=== PATIENT | female | born 1965 | race American Indian/Alaskan Native ===

== ENCOUNTER 2016-11-06 17:26 | Emergency (ER) | payer SELFPAY ==
[2016-11-06 17:45] VITALS: BP 125/85
[2016-11-06] MEDS ORDERED: TYLENOL PO ONE (17:47)
[2016-11-06 23:05] LABS: Hematocrit 41.3 % (30.3-42.9); Hemoglobin 13.9 gm/dl (10.1-14.3); Mean Corpuscular HGB Conc 34 % (30-34); Mean Corpuscular Hemoglobin 31 pg (28-32); Mean Corpuscular Volume 91 fl (79-97); Platelet Count 143 K/mm3 (140-440); Red Blood Count 4.56 M/mm3 (3.65-5.03); Red Cell Distribution Width 13.5 % (13.2-15.2); White Blood Count 3.5 K/mm3 (4.5-11.0)
[2016-11-06 23:28] LABS: Anion Gap TNR mmol/L; Blood Urea Nitrogen TNR mg/dL (7-17); Carbon Dioxide TNR mmol/L (22-30); Chloride TNR mmol/L (98-107); Potassium TNR mmol/L (3.6-5.0); Sodium TNR mmol/L (137-145)
[2016-11-06 23:29] LABS: BUN/Creatinine Ratio TNR; Calcium TNR mg/dL (8.4-10.2); Glucose TNR mg/dL (65-100)
--- NOTE | 2016-11-06 23:39 | Emergency Department Report ---
<REBECCA MANDUJANO - Last Filed: 11/06/16 23:59> - General Chief Complaint: Fever Stated Complaint: FLU SYMPTOMS/BODY ACHES Time Seen by Provider: 11/06/16 22:27 Source: patient Mode of arrival: Ambulatory Limitations: No Limitations - History of Present Illness Initial Comments: Patient presents with cough and congestion, she states green mucus production and fever since yesterday. She also complains of aching all over in pain with coughing and her left lower back. She also admits to her urine being odorous. Admits to headache, sore throat, shortness of breath, body aches. MD Complaint: fever, cough, sore throat, nasal congestion -: Gradual Severity: moderate Severity scale (0 -10): 9 Quality: dull, aching Consistency: constant Improves With: nothing Associated Symptoms: fever, headache Treatments Prior to Arrival: "cold medicine" - Related Data Previous Rx's Medication Instructions Recorded Last Taken Type Acetaminophen [Acetaminophen TAB] 500 mg PO Q6HR #30 tablet 11/07/16 Unknown Rx Cephalexin [Keflex] 500 mg PO BID #14 capsule 11/07/16 Unknown Rx Oseltamivir [Tamiflu] 75 mg PO BID #10 cap 11/07/16 Unknown Rx Allergies Allergy/AdvReac Type Severity Reaction Status Date / Time No Known Allergies Allergy Verified 11/06/16 17:40 ED Review of Systems ROS: Stated complaint: FLU SYMPTOMS/BODY ACHES Other details as noted in HPI Constitutional: denies: chills, fever ENT: throat pain, congestion Respiratory: cough, shortness of breath Cardiovascular: denies: chest pain, palpitations Gastrointestinal: denies: abdominal pain, nausea, diarrhea Genitourinary: as per HPI Musculoskeletal: as per HPI Skin: denies: rash, lesions Neurological: headache Psychiatric: denies: anxiety, depression ED Past Medical Hx - Past Medical History Previous Medical History?: No - Surgical History Additional Surgical History: 2 c-sections - Social History Smoking Status: Never Smoker Substance Use Type: None - Medications Home Medications: Home Medications Medication Instructions Recorded Confirmed Last Taken Type Acetaminophen [Acetaminophen TAB] 500 mg PO Q6HR #30 tablet 11/07/16 Unknown Rx Cephalexin [Keflex] 500 mg PO BID #14 capsule 11/07/16 Unknown Rx Oseltamivir [Tamiflu] 75 mg PO BID #10 cap 11/07/16 Unknown Rx ED Physical Exam - General Limitations: No Limitations General appearance: alert, in no apparent distress, other (ill appearing but nontoxic) - Head Head exam: Present: atraumatic, normocephalic - Eye Eye exam: Present: normal appearance - ENT ENT exam: Present: mucous membranes moist, TM's normal bilaterally - Expanded ENT Exam Expanded Mouth exam: Present: normal external inspection Teeth exam: Present: normal inspection Throat exam: Positive: normal inspection - Neck Neck exam: Present: normal inspection - Respiratory Respiratory exam: Present: normal lung sounds bilaterally, decreased breath sounds. Absent: respiratory distress - Cardiovascular Cardiovascular Exam: Present: regular rate, normal rhythm. Absent: systolic murmur, diastolic murmur, rubs, gallop - GI/Abdominal GI/Abdominal exam: Present: soft, normal bowel sounds - Back Exam Back exam: Present: normal inspection - Neurological Exam Neurological exam: Present: alert, oriented X3 - Psychiatric Psychiatric exam: Present: normal affect, normal mood - Skin Skin exam: Present: warm, dry, intact, normal color. Absent: rash ED Course Vital Signs 11/06/16 11/06/16 17:38 17:49 Temperature 101.0 F H Pulse Rate 107 H Respiratory 19 19 Rate Blood Pressure 125/85 O2 Sat by Pulse 96 Oximetry ED Medical Decision Making - Lab Data Result diagrams: 11/06/16 22:52 11/06/16 22:52 - Medical Decision Making Patient presents with headache, sore throat, shortness of breath. Flu swab ordered. Critical Care Time: No Critical care attestation.: If time is entered above; I have spent that time in minutes in the direct care of this critically ill patient, excluding procedure time. ED Disposition Clinical Impression: Influenza A Urinary tract infection Qualifiers: Urinary tract infection type: site unspecified Hematuria presence: without hematuria Qualified Code(s): N39.0 - Urinary tract infection, site not specified Disposition: DISCHARGED TO HOME OR SELFCARE Is pt being admited?: No Does the pt Need Aspirin: No Condition: Stable Instructions: Influenza (ED), Urinary Tract Infection in Women (ED) Additional Instructions: Take medication as directed. Drink plenty of fluids to stay hydrated. Follow up with the selective referrals given at discharge. Return back to the ED for worsening symptoms or concerns Prescriptions: Acetaminophen [Acetaminophen TAB] 500 mg PO Q6HR #30 tablet Cephalexin [Keflex] 500 mg PO BID #14 capsule Oseltamivir [Tamiflu] 75 mg PO BID #10 cap Referrals: PRIMARY CARE,MD [Primary Care Provider] - 3-5 Days [facility] [Outside] - 3-5 Days Forms: Work/School Release Form(ED) <BURAK DURANDJose Alberto Odell - Last Filed: 11/07/16 01:07> ED Medical Decision Making - Lab Data Result diagrams: 11/06/16 22:52 11/06/16 23:44 Lab Results 11/06/16 11/06/16 11/06/16 Range/Units 00:00 22:52 22:52 WBC 3.5 L (4.5-11.0) K/mm3 RBC 4.56 (3.65-5.03) M/mm3 Hgb 13.9 (10.1-14.3) gm/dl Hct 41.3 (30.3-42.9) % MCV 91 (79-97) fl MCH 31 (28-32) pg MCHC 34 (30-34) % RDW 13.5 (13.2-15.2) % Plt Count 143 (140-440) K/mm3 Lyon % (Auto) Electromechanical Technician Sodium TNR Potassium TNR Chloride TNR Carbon Dioxide TNR Anion Gap TNR BUN TNR Creatinine TNR Estimated GFR TNR BUN/Creatinine Ratio TNR Glucose TNR Calcium TNR Urine Color Yellow (Yellow) Urine Turbidity Slightly-cloudy (Clear) Urine pH 5.0 (5.0-7.0) Ur Specific [place] 1.016 (1.003-1.030) Urine Protein <15 mg/dl (Negative) mg/dL Urine Glucose (UA) Neg (Negative) mg/dL Urine Ketones Tr (Negative) mg/dL Urine Blood Mod (Negative) Urine Nitrite Neg (Negative) Urine Bilirubin Neg (Negative) Urine Urobilinogen < 2.0 (<2.0) mg/dL Ur Leukocyte Esterase Sm (Negative) Urine WBC (Auto) 9.0 H (0.0-6.0) /HPF Urine RBC (Auto) 5.0 (0.0-6.0) /HPF U Epithel Cells (Auto) < 1.0 (0-13.0) /HPF Urine Bacteria (Auto) 2+ (Negative) /HPF Hyaline Casts 9 /LPF Urine Mucus 3+ /HPF 11/06/16 Range/Units 23:44 WBC (4.5-11.0) K/mm3 RBC (3.65-5.03) M/mm3 Hgb (10.1-14.3) gm/dl Hct (30.3-42.9) % MCV (79-97) fl MCH (28-32) pg MCHC (30-34) % RDW (13.2-15.2) % Plt Count (140-440) K/mm3 Lyon % (Auto) Sodium 134 L Potassium 3.7 Chloride 94.5 L Carbon Dioxide 23 Anion Gap 20 BUN 11 Creatinine 0.6 L Estimated GFR > 60 BUN/Creatinine Ratio 18.33 Glucose 89 Calcium 8.6 Urine Color (Yellow) Urine Turbidity (Clear) Urine pH (5.0-7.0) Ur Specific Al[place]o (1.003-1.030) Urine Protein (Negative) mg/dL Urine Glucose (UA) (Negative) mg/dL Urine Ketones (Negative) mg/dL Urine Blood (Negative) Urine Nitrite (Negative) Urine Bilirubin (Negative) Urine Urobilinogen (<2.0) mg/dL Ur Leukocyte Esterase (Negative) Urine WBC (Auto) (0.0-6.0) /HPF Urine RBC (Auto) (0.0-6.0) /HPF U Epithel Cells (Auto) (0-13.0) /HPF Urine Bacteria (Auto) (Negative) /HPF Hyaline Casts /LPF Urine Mucus /HPF Vital Signs 11/06/16 11/06/16 17:38 17:49 Temperature 101.0 F H Pulse Rate 107 H Respiratory 19 19 Rate Blood Pressure 125/85 O2 Sat by Pulse 96 Oximetry Microbiology 11/07/16 00:02 Influenza Types A,B Antigen (TIMOTHY) - Final Nasopharyngeal Swab Positive for A Negative for B - Medical Decision Making During the course of ED, analgesics and laboratory studies were ordered. Patient tested positive for influenza A and had a slightly elevated WBCs' in her urine. Patient was sent home with prescriptions for Tylenol, Tamiflu and Keflex, instructed to drink plenty of fluids to stay hydrated, she verbalize understanding - Differential Diagnosis Influenza, Upper Resp Infection, UTI, ED Disposition Is pt being admited?: No Does the pt Need Aspirin: No Time of Disposition: 01:04
--- NOTE | 2016-11-06 23:41 | XRay Report ---
FINAL REPORT PROCEDURE: XR CHEST ROUTINE 2V TECHNIQUE: PA and lateral chest radiographs were obtained. CPT 09372 HISTORY: shortness of breath COMPARISON: No prior studies are available for comparison. FINDINGS: Heart: Normal. Mediastinum/Vessels: Normal. Lungs/Pleural space: Lungs are well-expanded. There are patchy densities at the right lung base on the frontal view which could be right upper or middle lobe infiltrates. Correlation with clinical signs and symptoms suggested. There are no effusions or pneumothoraces.. Bony thorax: No acute osseous abnormality. Other: IMPRESSION: The heart size is normal.. Lungs are well-expanded. There are patchy densities at the right lung base on the frontal view which could be right upper or middle lobe infiltrates. Correlation with clinical signs and symptoms suggested. There are no effusions or pneumothoraces..
[2016-11-07 00:15] LABS: BUN/Creatinine Ratio 18.33; Blood Urea Nitrogen 11 mg/dL (7-17); Calcium 8.6 mg/dL (8.4-10.2); Carbon Dioxide 23 mmol/L (22-30); Chloride 94.5 mmol/L (98-107); Glucose 89 mg/dL (65-100); Potassium 3.7 mmol/L (3.6-5.0); Sodium 134 mmol/L (137-145)
[2016-11-07 00:16] LABS: Anion Gap 20 mmol/L
[2016-11-07 00:52] LABS: Anisocytosis 1+; Basophils % (Manual) 0 % (0.0-1.8); Blastocytes % (Manual) 0 %; Eosinophils % (Manual) 0 % (0.0-4.3)
[2016-11-07 00:53] LABS: Diff Status Complete; Hypochromasia 1+
== END 2016-11-07 01:37 | disposition home or self-care (01) ==
LOC: ED 17:26
DX: J09.X2 Influenza due to identified novel influenza A virus with other respiratory manifestations (principal); N39.0 Urinary tract infection, site not specified
CPT/HCPCS: 36415; 71020; 80048; 81001; 85007; 85025; 87400

== ENCOUNTER 2019-10-09 18:35 | Emergency (ER) | payer SELFPAY ==
--- NOTE | 2019-10-09 19:17 | Emergency Department Report ---
Blank Doc - Documentation Documentation: 54-year-old female that presents with midsternum chest pain. Denies any SOB. Stated symptoms started after eating Portuguese food. This initial assessment/diagnostic orders/clinical plan/treatment(s) is/are subject to change based on patient's health status, clinical progression and re- assessment by fellow clinical providers in the ED. Further treatment and workup at subsequent clinical providers discretion. Patient/guardians urged not to elope from the ED as their condition may be serious if not clinically assessed and managed. Initial orders include: 1- Patient sent to [facility] for further evaluation and treatment. 2- EKG
[2019-10-09] MEDS ORDERED: ALUM-MAG HYDROXIDE-SIMETHICONE 200-200-20MG/5ML ORAL LIQD 30 ML PO ONE (19:57)
[2019-10-09] MEDS ORDERED: ACETAMINOPHEN 500 MG TAB PO ONE (19:57)
[2019-10-09 20:26] LABS: Basophils % (Auto) 0.5 % (0.0-1.8); Eosinophils # (Auto) 0.2 K/mm3 (0.0-0.4); Eosinophils % (Auto) 2.9 % (0.0-4.3); Hematocrit 41.3 % (30.3-42.9); Hemoglobin 14.2 gm/dl (10.1-14.3); Lymphocytes # (Auto) 1.7 K/mm3 (1.2-5.4); Mean Corpuscular HGB Conc 34 % (30-34); Mean Corpuscular Volume 90 fl (79-97); Monocytes # (Auto) 0.6 K/mm3 (0.0-0.8); Monocytes % (Auto) 9.5 % (0.0-7.3); Platelet Count 200 K/mm3 (140-440); Red Blood Count 4.57 M/mm3 (3.65-5.03); Red Cell Distribution Width 13.5 % (13.2-15.2)
--- NOTE | 2019-10-09 20:41 | XRay Report ---
CHEST 1 VIEW INDICATION / CLINICAL INFORMATION: Chest Pain. COMPARISON: 11/06/2016 FINDINGS: SUPPORT DEVICES: None. HEART / MEDIASTINUM: Stable. LUNGS / PLEURA: No significant pulmonary or pleural abnormality. No pneumothorax. IMPRESSION: 1. No acute finding. No significant change. Signer Name: Jose Miguel Guzman MD Signed: 10/09/2019 8:36 PM Workstation Name: [id number]
[2019-10-09 20:51] LABS: Alanine Aminotransferase 15 units/L (7-56); BUN/Creatinine Ratio 26; Blood Urea Nitrogen 13 mg/dL (7-17); Hemolysis Index 11
--- NOTE | 2019-10-09 23:04 | Emergency Department Report ---
ED Chest Pain HPI - General Chief Complaint: Chest Pain Stated Complaint: CP Time Seen by Provider: 10/09/19 19:15 Source: patient Mode of arrival: Ambulatory Limitations: No Limitations - History of Present Illness Initial Comments: Mrs. Kirk is a 54-year-old female without significant past medical history who presents with right-sided chest pain. She has tenderness in the breast. Hurts to touch and move. Gradual onset of pain this evening. No history of injury. No history of heavy lifting. No shortness of breath. No fever. The symptoms occurred briefly after eating restaurant food and returning home. Denies cough. Denies shortness of breath. Denies leg pain. No recent travel. No use of hormone therapy. MD Complaint: chest pain -: Gradual, hour(s) (1) Onset: during rest Pain Location: right chest Pain Radiation: none Severity: moderate Severity scale (0 -10): 6 Quality: aching, sharp Improves With: nothing Worsens With: palpation Treatments Prior to Arrival: none - Related Data Previous Rx's Medication Instructions Recorded Last Taken Type Ibuprofen [Motrin 400 MG tab] 400 mg PO TID 5 Days #15 tablet 10/09/19 Unknown Rx Allergies Allergy/AdvReac Type Severity Reaction Status Date / Time No Known Allergies Allergy Verified 11/06/16 17:40 Heart Score - HEART Score History: Slightly suspicious EKG: Normal Age: 45-65 Risk factors: No known risk factors Troponin: < normal limit HEART Score: 1 ED Review of Systems ROS: Stated complaint: CP Other details as noted in HPI Comment: All other systems reviewed and negative Constitutional: denies: malaise Respiratory: shortness of breath Cardiovascular: chest pain Gastrointestinal: denies: abdominal pain, nausea, vomiting ED Past Medical Hx - Past Medical History Previous Medical History?: No - Surgical History Past Surgical History?: Yes Additional Surgical History: 2 c-sections - Social History Smoking Status: Never Smoker Substance Use Type: None - Medications Home Medications: Home Medications Medication Instructions Recorded Confirmed Last Taken Type Ibuprofen [Motrin 400 MG tab] 400 mg PO TID 5 Days #15 tablet 10/09/19 Unknown Rx ED Physical Exam - General Limitations: No Limitations General appearance: alert, in no apparent distress - Head Head exam: Present: atraumatic, normocephalic - Eye Eye exam: Present: normal appearance, scleral icterus - ENT ENT exam: Present: mucous membranes moist - Neck Neck exam: Present: normal inspection, full ROM - Respiratory Respiratory exam: Present: normal lung sounds bilaterally, chest wall tenderness (right chest wall: exquisite tenderness). Absent: respiratory distress - Cardiovascular Cardiovascular Exam: Present: regular rate, normal rhythm, normal heart sounds. Absent: systolic murmur, diastolic murmur, rubs, gallop - GI/Abdominal GI/Abdominal exam: Present: soft. Absent: distended, tenderness, guarding, rebound - Extremities Exam Extremities exam: Present: normal inspection - Neurological Exam Neurological exam: Present: alert, oriented X3 - Psychiatric Psychiatric exam: Present: normal affect, normal mood - Skin Skin exam: Present: warm, dry, intact, normal color. Absent: rash ED Course Vital Signs 10/09/19 19:15 Temperature 97.5 F L Pulse Rate 71 Respiratory 20 Rate Blood Pressure 149/85 O2 Sat by Pulse 100 Oximetry ED Medical Decision Making - Lab Data Result diagrams: 10/09/19 20:11 10/09/19 20:11 Laboratory Results - last 24 hr 10/09/19 10/09/19 10/09/19 20:11 20:11 21:51 WBC 6.0 RBC 4.57 Hgb 14.2 Hct 41.3 MCV 90 MCH 31 MCHC 34 RDW 13.5 Plt Count 200 Lymph % (Auto) 29.0 Dickenson % (Auto) 9.5 H Eos % (Auto) 2.9 Baso % (Auto) 0.5 Lymph # 1.7 Dickenson # 0.6 Eos # 0.2 Baso # 0.0 Seg Neutrophils % 58.1 Seg Neutrophils # 3.5 Sodium 137 Potassium 3.9 Chloride 102.4 Carbon Dioxide 24 Anion Gap 15 BUN 13 Creatinine 0.5 L Estimated GFR > 60 BUN/Creatinine Ratio 26 Glucose 95 Calcium 9.0 Total Bilirubin 0.20 AST 18 ALT 15 Alkaline Phosphatase 84 Troponin T < 0.010 < 0.010 Total Protein 8.0 Albumin 4.0 Albumin/Globulin Ratio 1.0 - EKG Data EKG shows normal: sinus rhythm, axis, intervals, QRS complexes, ST-T waves Rate: normal - EKG Data Interpretation: no acute changes, normal EKG 10/09/19 23:01 Rate 70 beats a minute - Radiology Data Radiology results: report reviewed Chest x-ray: No acute process - Medical Decision Making Ms. Kirk presents with right chest pain with tenderness. ATypical for ACS. Low risk for ACS Heart score . Last mammogram 1-2 years ago. DDX: mastitis, chest wall strain PE, PTX, PNA, ACS, dissection ruled out with clinical exam Rx: ibuprofen Cardiology referral arranged to [facility] Referred to outpatient physician visual education teacher strongly recommended mammogram Critical care attestation.: If time is entered above; I have spent that time in minutes in the direct care of this critically ill patient, excluding procedure time. ED Disposition Clinical Impression: Right-sided chest wall pain Disposition: DC- TO HOME OR SELFCARE Is pt being admited?: No Does the pt Need Aspirin: No Condition: Stable Instructions: Chest Pain (ED) Prescriptions: Ibuprofen [Motrin 400 MG tab] 400 mg PO TID 5 Days #15 tablet Referrals: MAX GARSIA MD [Staff Physician] - 3-5 Days Forms: Work/School Release Form(ED)
[2019-10-09] MEDS ORDERED: IBUPROFEN 800 MG TAB PO ONE (23:07)
[2019-10-09 23:33] VITALS: BP 172/83
== END 2019-10-09 23:15 | disposition home or self-care (01) ==
LOC: ED 18:35
DX: R07.89 Other chest pain (principal)
CPT/HCPCS: 36415; 71045; 80053; 84484; 85025; 93005; 93010

== ENCOUNTER 2021-12-06 13:17 | Outpatient (CLI) | payer BC ==
--- NOTE | 2021-12-06 17:16 | Cat Scan Report ---
CT neck w con INDICATION / CLINICAL INFORMATION: 56 years Female; MASS ON LEFT SIDE OMNI 300 100 ML. TECHNIQUE: Contiguous thin cut axial images obtained through the neck following IV contrast. Sagittal and rome l reconstructions performed by the technologist. All CT scans at this location are performed using CT dose reduction for ALARA by means of automated exposure control. COMPARISON: None available. FINDINGS: MUCOSAL SPACE: There is notable asymmetry of the laryngeal soft tissues with relative prominence of t he right piriform sinus and medial positioning of the cord at. This finding may be seen with paralysi s of the right vocal cord and correlation would be needed. No definitive focal lesions are seen along the right lateral neck. There is some motion artifact. However, the epiglottis appears appropriate i n size. There is mild prominence of the palatine soft tissues which may reflect lymphoid hypertrophy. No definitive focal lesions are seen involving the visualized oral pharyngeal soft tissues. LYMPH NODES: There are multiple scattered small cervical lymph nodes which are nonspecific though may be reactive though. The largest node is within the left jugulodigastric region measuring 0.7 cm bustillos sverse by 1.5 cm longitudinally at. SALIVARY GLANDS: The visualized parotid and submandibular glands demonstrate fairly symmetric attenua tion without sialolithiasis. THYROID GLAND: Unremarkable. PARANASAL SINUSES: Visualized paranasal sinuses and mastoid air cells are essentially clear. SPINE: There are multilevel mild degenerative the changes involving the cervical spine. VASCULAR STRUCTURES: Vascular structures are grossly normal in appearance. IMPRESSION: 1. There is asymmetry of the laryngeal soft tissues as detailed above. Otherwise, the CT of the neck appears unremarkable without definitive focal lesions or significant inflammatory changes at. The mul tiple scattered small cervical lymph nodes are likely reactive. Signer Name: Eddie Pond MD Signed: 12/06/2021 5:11 PM Workstation Name: [id number]
== END 2021-12-06 13:18 | disposition home or self-care (01) ==
LOC: MAMMO 13:17
PROVIDERS: ATTEND Internal Medicine
DX: Z12.31 Encounter for screening mammogram for malignant neoplasm of breast (principal); R22.1 Localized swelling, mass and lump, neck; M47.812 Spondylosis without myelopathy or radiculopathy, cervical region
CPT/HCPCS: 70491; 77067; Q9967

== ENCOUNTER 2022-04-17 09:07 | Outpatient (CLI) | payer BC ==
[2022-04-17 11:38] LABS: Chol/HDL Ratio 4.4 %
== END 2022-04-17 09:08 | disposition home or self-care (01) ==
LOC: LAB 09:07
PROVIDERS: ATTEND Internal Medicine
DX: E78.5 Hyperlipidemia, unspecified (principal)
CPT/HCPCS: 36415; 80061